=== PATIENT | male | born 1940 | race Caucasian/White ===

== ENCOUNTER 2022-03-13 11:09 | Inpatient (IN) | payer OTHER ==
[~2022-03-13] VITALS: Ht 167.6 cm; Wt 72.0 kg
[2022-03-13] MEDS ORDERED: CLOP75TA60 PO (11:21)
[2022-03-13 14:49] LABS: BASOPHILS % (AUTO) 0.8 % (0.0-2.0); HEMATOCRIT 36.5 % (41-53); LYMPHOCYTES # (AUTO) 1.6 K/uL (1.0-4.8); LYMPHOCYTES % (AUTO) 19.6 % (22.0-44.0); MEAN CORPUSCULAR HEMOGLOBIN 30.3 pg (26.0-34.0); MEAN CORPUSCULAR HGB CONC 32.9 G/dL (31.0-37.0); MEAN CORPUSCULAR VOLUME 92 fL (80-100); MONOCYTES # (AUTO) 0.7 K/uL (0.1-1.0); MONOCYTES % (AUTO) 8.4 % (2.0-9.0); NEUTROPHILS # (AUTO) 5.6 K/uL (1.8-7.7); NEUTROPHILS % (AUTO) 67.2 % (40.0-70.0); PLATELET COUNT (AUTO) 221 K/uL (150-450); RED BLOOD CELL COUNT(AUTO) 3.97 MIL/uL (4.50-5.90); RED CELL DISTRIBUTION WIDTH 12.9 % (11.5-14.5)
[2022-03-13 14:52] LABS: ANION GAP 8 mmol/L (8-16); CALCIUM, TOTAL 8.5 mg/dL (8.8-10.5); CARBON DIOXIDE 27 mmol/L (22-29); CHLORIDE 106 mmol/L (98-107); CREATININE 0.91 mg/dL (0.60-1.30); GLUCOSE,RANDOM 99 mg/dL (70-110); POTASSIUM 3.9 mmol/L (3.5-5.1); SODIUM SERUM 141 mmol/L (136-145); UREA NITROGEN, BLOOD 27 mg/dL (7-18)
[2022-03-13 14:53] LABS: GLOMERULAR FILTR. RATE CALC > 60 mL/min (>60)
[2022-03-13 14:54] LABS: PROTHROMBIN TIME 10.9 SEC (9.4-11.6)
[2022-03-13] MEDS ORDERED: AmLODIPine BESYLATE 2.5 MG TABLET PO SCH (15:00)
[2022-03-13] MEDS ORDERED: ACETAMINOPHEN 325 MG TABLET PO PRN (15:00)
[2022-03-13] MEDS ORDERED: ONDANSETRON HCL 4 MG/2 ML VIAL IVP PRN (15:00)
[2022-03-13] MEDS ORDERED: ASPIRIN 81 MG CHEWABLE TABLET PO SCH (15:00)
[2022-03-13 15:02] LABS: B-TYPE NATRIURETIC PEPTIDE 60 pg/mL (0-100)
[2022-03-13 15:06] LABS: ALANINE AMINOTRANSFERASE 21 U/L (12-78); ALBUMIN 3.3 g/dL (3.4-5.0); ALKALINE PHOSPHATASE 99 U/L (46-116); ASPARTATE AMINOTRANSFERASE 23 U/L (15-37); BILIRUBIN,TOTAL 0.4 mg/dL (0.1-1.0); TOTAL PROTEIN, SERUM 6.9 g/dL (6.4-8.2)
[2022-03-13 15:32] LABS: COVID AG,FIA SOURCE NASAL SWAB
[2022-03-13] MEDS: ATORVASTATIN CALCIUM 20 MG TABLET PO SCH (15:55)
[2022-03-13] MEDS ORDERED: HEPARIN SODIUM,PORCINE 5,000 UNITS/ML VIAL SQ SCH (16:00)
[2022-03-13] MEDS ORDERED: SODIUM CHLORIDE 0.9% 1,000 ML IV ONE (17:30)
[2022-03-13] MEDS: DOCUSATE SODIUM 100 MG CAPSULE PO SCH (21:00)
[2022-03-14] MEDS: DOCUSATE SODIUM 100 MG CAPSULE PO SCH ×2 (08:34→21:00)
[2022-03-14] MEDS: AmLODIPine BESYLATE 5 MG TABLET PO SCH (09:28)
[2022-03-14] MEDS: MULTIVITAMINS WITH MINERALS, THERAPEUTIC TABLET PO SCH (09:28)
[2022-03-14] MEDS: FAMOTIDINE 20 MG TABLET PO SCH (09:28)
[2022-03-14] MEDS: ATORVASTATIN CALCIUM 20 MG TABLET PO SCH (09:28)
[2022-03-14] MEDS ORDERED: MELO-108 PO (11:25)
[2022-03-14 20:00] VITALS: BP 144/76
[2022-03-15 04:21] VITALS: BP 142/83
[2022-03-15 07:39] VITALS: BP 137/90
[2022-03-15] MEDS: FAMOTIDINE 20 MG TABLET PO SCH (09:00)
[2022-03-15] MEDS: MULTIVITAMINS WITH MINERALS, THERAPEUTIC TABLET PO SCH (09:00)
[2022-03-15] MEDS: DOCUSATE SODIUM 100 MG CAPSULE PO SCH ×2 (09:00→21:00)
[2022-03-15] MEDS: AmLODIPine BESYLATE 5 MG TABLET PO SCH (09:00)
[2022-03-15] MEDS: ATORVASTATIN CALCIUM 20 MG TABLET PO SCH (09:00)
[2022-03-15] MEDS ORDERED: THROMBIN, BOVINE 20000 UNITS/VIAL POWDER TP ONE (09:17)
[2022-03-15] MEDS ORDERED: VANCOMYCIN HCL 1 GM/VIAL ONE (09:17)
[2022-03-15] MEDS ORDERED: LIDOCAINE 1%/EPI 1:200,000/PF 30 ML VIAL ONE (09:17)
[2022-03-15] MEDS ORDERED: BACITRACIN 28 GM OINTMENT TP ONE (09:17)
[2022-03-15] MEDS ORDERED: GELATIN SPONGE,ABSORBABLE 50 MM TP ONE (09:19)
[2022-03-15] MEDS ORDERED: SODIUM CHLORIDE 0.9% 1,000 ML ONE (09:50)
[2022-03-15] MEDS ORDERED: BUPIVACAINE 0.25%/EPI 1:200,000/PF 10 ML VIAL ONE (10:49)
[2022-03-15] MEDS ORDERED: LevETIRAcetam 1,000 MG in DEXTROSE 5%-WATER 100 ML IV ONE (11:00)
[2022-03-15] MEDS ORDERED: TRANEXAMIC ACID 1,000 MG/10 ML VIAL ONE (11:39)
[2022-03-15] MEDS ORDERED: SUGAMMADEX SODIUM 200 MG/2 ML VIAL IVP ONE (11:39)
[2022-03-15] MEDS ORDERED: ONDANSETRON HCL 4 MG/2 ML VIAL IVP ONE (12:00)
[2022-03-15] MEDS ORDERED: ROCURONIUM BROMIDE 10 MG/ML 5 ML VIAL IVP ONE (12:00)
[2022-03-15] MEDS ORDERED: PROPOFOL 1% 20 ML VIAL IVP ONE (12:00)
[2022-03-15] MEDS ORDERED: MIDAZOLAM HCL 2 MG/2 ML VIAL IVP ONE (12:00)
[2022-03-15] MEDS ORDERED: 0.9% SODIUM CHLORIDE 10 ML VIAL IVP ONE (12:00)
[2022-03-15] MEDS ORDERED: EPHEDrine SULFATE 50 MG/ML VIAL IM ONE (12:00)
[2022-03-15] MEDS ORDERED: FentaNYL CITRATE PF 100 MCG/2 ML VIAL IVP ONE (12:00)
[2022-03-15] MEDS ORDERED: LIDOCAINE/PF 2% 5 ML VIAL IM ONE (12:00)
[2022-03-15] MEDS ORDERED: MORPHINE SULFATE 4 MG/ML SYRINGE IVP PRN (12:30)
[2022-03-15] MEDS ORDERED: ONDANSETRON HCL 4 MG/2 ML VIAL IVP PRN (12:30)
[2022-03-15] MEDS ORDERED: MAG HYDROX/AL HYDROX/SIMETH 30 ML SUSP UDCUP PO PRN (12:30)
[2022-03-15] MEDS ORDERED: ACETAMINOPHEN 325 MG TABLET PO PRN (12:30)
[2022-03-15] MEDS ORDERED: OxyCODONE HCL/ACETAMINOPHEN 5-325 MG TABLET PO PRN (12:30)
[2022-03-15] MEDS ORDERED: FentaNYL CITRATE PF 100 MCG/2 ML VIAL IVP PRN (12:45)
[2022-03-15] MEDS ORDERED: HYDROmorphone HCL 2 MG/ML SYRINGE IVP PRN (12:45)
[2022-03-15] MEDS ORDERED: FentaNYL CITRATE PF 100 MCG/2 ML VIAL ONE (13:06)
[2022-03-15 16:30] VITALS: BP 122/68
[2022-03-15] MEDS ORDERED: SODIUM CHLORIDE 0.9% 250 ML IV ONE (16:37)
[2022-03-15 16:45] VITALS: BP 142/68
[2022-03-15 17:30] VITALS: BP 144/70
[2022-03-15 20:00] VITALS: BP 144/99
[2022-03-15] MEDS: POTASSIUM CHL 20 MEQ/D5-0.45NS 1,000 ML IV SCH (21:23)
[2022-03-15] MEDS: CeFAZolin 1 GM/DEXTROSE 50 ML IV SCH (21:24)
[2022-03-15] MEDS: OXYGEN THERAPY IH SCH (21:25)
[2022-03-16] VITALS: BP 153/72
[2022-03-16 04:00] VITALS: BP 153/80
[2022-03-16] MEDS: CeFAZolin 1 GM/DEXTROSE 50 ML IV SCH (04:23)
[2022-03-16 06:38] LABS: BASOPHILS % (AUTO) 0.4 % (0.0-2.0); EOSINOPHILS % (AUTO) 4.5 % (1.0-6.0); HEMATOCRIT 39.7 % (41-53); HEMOGLOBIN 13.3 g/dL (13.5-17.5); LYMPHOCYTES # (AUTO) 0.9 K/uL (1.0-4.8); LYMPHOCYTES % (AUTO) 10.7 % (22.0-44.0); MEAN CORPUSCULAR HEMOGLOBIN 30.7 pg (26.0-34.0); MEAN CORPUSCULAR HGB CONC 33.5 G/dL (31.0-37.0); MEAN CORPUSCULAR VOLUME 92 fL (80-100); MONOCYTES # (AUTO) 0.8 K/uL (0.1-1.0); MONOCYTES % (AUTO) 9.4 % (2.0-9.0); NEUTROPHILS # (AUTO) 6.1 K/uL (1.8-7.7); PLATELET COUNT (AUTO) 229 K/uL (150-450); RED BLOOD CELL COUNT(AUTO) 4.34 MIL/uL (4.50-5.90); RED CELL DISTRIBUTION WIDTH 12.8 % (11.5-14.5)
[2022-03-16 06:55] LABS: ANION GAP 6 mmol/L (8-16); CALCIUM, TOTAL 8.6 mg/dL (8.8-10.5); CARBON DIOXIDE 28 mmol/L (22-29); CHLORIDE 102 mmol/L (98-107); CREATININE 0.91 mg/dL (0.60-1.30); GLUCOSE,RANDOM 111 mg/dL (70-110); POTASSIUM 3.6 mmol/L (3.5-5.1); SODIUM SERUM 136 mmol/L (136-145); UREA NITROGEN, BLOOD 13 mg/dL (7-18)
[2022-03-16 07:07] LABS: GLOMERULAR FILTR. RATE CALC > 60 mL/min (>60)
[2022-03-16 08:00] VITALS: BP 154/76
[2022-03-16 08:21] LABS: ABG BASE EXCESS 1.1 mmol/L (-2.0-3.0); ABG CARBOXYHEMOGLOBIN 0.6 % (0.0-1.5); ABG HCO3 25.4 mmol/L (22.0-26.0); ABG METHEMOGLOBIN 0.3 % (0.0-1.5); ABG OXYGEN CONTENT 18.1 mL/dL (15.0-23.0); ABG OXYGEN SATURATION 97.9 % (95.0-98.0); ABG PCO2 41 mmHg (35-45); ABG PH 7.418 (7.35-7.450); ABG TOTAL HEMOGLOBIN 13.2 G/dL (12.0-18.0); PO2, ARTERIAL BG 101.4 mmHg (71.0-79.0); SITE, BLOOD GAS LFT RADIAL; SOURCE, BLOOD GAS ARTERIAL; TEMPERATURE, FAHRENHEIT, BG 98.4 FAHREN (96.0-98.6)
[2022-03-16 08:22] LABS: ABG A-A DIFF O2 50.5 mmHg (10-20.0); O2 DEVICE,BLOOD GAS CANNULA (ROOM AIR)
[2022-03-16] MEDS: AmLODIPine BESYLATE 5 MG TABLET PO SCH ×2 (09:00→10:00)
[2022-03-16] MEDS: ATORVASTATIN CALCIUM 20 MG TABLET PO SCH ×2 (09:00→10:00)
[2022-03-16] MEDS: MULTIVITAMINS WITH MINERALS, THERAPEUTIC TABLET PO SCH (09:00)
[2022-03-16] MEDS: DOCUSATE SODIUM 100 MG CAPSULE PO SCH ×2 (09:00→21:00)
[2022-03-16] MEDS: FAMOTIDINE 20 MG TABLET PO SCH (09:00)
[2022-03-16] MEDS: OXYGEN THERAPY IH SCH ×2 (09:09→20:00)
[2022-03-16] MEDS: POTASSIUM CHL 20 MEQ/D5-0.45NS 1,000 ML IV SCH (10:06)
[2022-03-16] MEDS ORDERED: SODIUM CHLORIDE 0.9% 250 ML IV ONE (10:15)
[2022-03-16 12:00] VITALS: BP 157/75
[2022-03-16] MEDS: LevETIRAcetam 500 MG in DEXTROSE 5%-WATER 100 ML IV SCH (12:19)
[2022-03-16] MEDS ORDERED: HydrALAZINE HCL 20 MG/ML VIAL IVP PRN (15:30)
[2022-03-16] MEDS ORDERED: AmLODIPine BESYLATE 5 MG TABLET PO ONE (15:30)
[2022-03-16 16:00] VITALS: BP 162/80
[2022-03-16 20:00] VITALS: BP 112/61
[2022-03-17] VITALS (7 sets, daily range): BP systolic 107–147; BP diastolic 46–79
[2022-03-17] MEDS: LevETIRAcetam 500 MG in DEXTROSE 5%-WATER 100 ML IV SCH ×2 (00:07→12:04)
[2022-03-17 05:58] LABS: BASOPHILS % (AUTO) 0.2 % (0.0-2.0); EOSINOPHILS % (AUTO) 6.8 % (1.0-6.0); HEMATOCRIT 40.1 % (41-53); HEMOGLOBIN 13.5 g/dL (13.5-17.5); LYMPHOCYTES # (AUTO) 1.2 K/uL (1.0-4.8); LYMPHOCYTES % (AUTO) 14.4 % (22.0-44.0); MEAN CORPUSCULAR HEMOGLOBIN 30.7 pg (26.0-34.0); MEAN CORPUSCULAR HGB CONC 33.7 G/dL (31.0-37.0); MEAN CORPUSCULAR VOLUME 91 fL (80-100); MONOCYTES # (AUTO) 0.7 K/uL (0.1-1.0); MONOCYTES % (AUTO) 9.1 % (2.0-9.0); NEUTROPHILS # (AUTO) 5.6 K/uL (1.8-7.7); NEUTROPHILS % (AUTO) 69.5 % (40.0-70.0); PLATELET COUNT (AUTO) 224 K/uL (150-450); RED CELL DISTRIBUTION WIDTH 12.9 % (11.5-14.5)
[2022-03-17 06:10] LABS: ANION GAP 6 mmol/L (8-16); CALCIUM, TOTAL 8.5 mg/dL (8.8-10.5); CARBON DIOXIDE 30 mmol/L (22-29); CHLORIDE 101 mmol/L (98-107); CREATININE 0.83 mg/dL (0.60-1.30); GLUCOSE,RANDOM 104 mg/dL (70-110); PHOSPHORUS 3.2 mg/dL (2.5-4.9); POTASSIUM 3.8 mmol/L (3.5-5.1); SODIUM SERUM 137 mmol/L (136-145); UREA NITROGEN, BLOOD 8 mg/dL (7-18)
[2022-03-17 06:43] LABS: GLOMERULAR FILTR. RATE CALC > 60 mL/min (>60)
[2022-03-17 07:11] LABS: PLATELET MORPHOLOGY COMMENT LARGE PLTS PRESENT
[2022-03-17] MEDS: OXYGEN THERAPY IH SCH ×2 (08:50→20:34)
[2022-03-17] MEDS: MULTIVITAMINS WITH MINERALS, THERAPEUTIC TABLET PO SCH (08:54)
[2022-03-17] MEDS: DOCUSATE SODIUM 100 MG CAPSULE PO SCH ×2 (08:54→20:34)
[2022-03-17] MEDS: FAMOTIDINE 20 MG TABLET PO SCH (08:54)
[2022-03-17] MEDS: AmLODIPine BESYLATE 10 MG TABLET PO SCH (08:54)
[2022-03-17] MEDS: ATORVASTATIN CALCIUM 20 MG TABLET PO SCH (09:06)
[2022-03-17] MEDS ORDERED: SODIUM CL IRRIG SOLN BOTTLE 250 ML IRRIG ONE (17:05)
[2022-03-18] VITALS (7 sets, daily range): BP systolic 117–127; BP diastolic 62–78
[2022-03-18] MEDS: LevETIRAcetam 500 MG in DEXTROSE 5%-WATER 100 ML IV SCH ×3 (00:15→23:55)
[2022-03-18] MEDS ORDERED: SODIUM CL IRRIG SOLN BOTTLE 250 ML IRRIG ONE ×2 (05:14→14:08)
[2022-03-18] MEDS: OXYGEN THERAPY IH SCH ×2 (08:00→20:21)
[2022-03-18] MEDS: DOCUSATE SODIUM 100 MG CAPSULE PO SCH ×2 (09:19→20:21)
[2022-03-18] MEDS: FAMOTIDINE 20 MG TABLET PO SCH (09:19)
[2022-03-18] MEDS: MULTIVITAMINS WITH MINERALS, THERAPEUTIC TABLET PO SCH (09:20)
[2022-03-18] MEDS: AmLODIPine BESYLATE 10 MG TABLET PO SCH (09:22)
[2022-03-19 03:33] VITALS: BP 130/77
[2022-03-19 06:20] LABS: BASOPHILS % (AUTO) 0.4 % (0.0-2.0); EOSINOPHILS % (AUTO) 9.4 % (1.0-6.0); HEMATOCRIT 37.3 % (41-53); HEMOGLOBIN 12.8 g/dL (13.5-17.5); LYMPHOCYTES # (AUTO) 1.8 K/uL (1.0-4.8); LYMPHOCYTES % (AUTO) 19.3 % (22.0-44.0); MEAN CORPUSCULAR HGB CONC 34.4 G/dL (31.0-37.0); MEAN CORPUSCULAR VOLUME 90 fL (80-100); MONOCYTES # (AUTO) 0.9 K/uL (0.1-1.0); MONOCYTES % (AUTO) 9.2 % (2.0-9.0); NEUTROPHILS # (AUTO) 5.8 K/uL (1.8-7.7); NEUTROPHILS % (AUTO) 61.7 % (40.0-70.0); PLATELET COUNT (AUTO) 228 K/uL (150-450); RED BLOOD CELL COUNT(AUTO) 4.15 MIL/uL (4.50-5.90); RED CELL DISTRIBUTION WIDTH 12.8 % (11.5-14.5)
[2022-03-19 07:55] VITALS: BP 110/66
[2022-03-19] MEDS: DOCUSATE SODIUM 100 MG CAPSULE PO SCH ×2 (08:18→20:01)
[2022-03-19] MEDS: MULTIVITAMINS WITH MINERALS, THERAPEUTIC TABLET PO SCH (08:18)
[2022-03-19] MEDS: FAMOTIDINE 20 MG TABLET PO SCH (08:18)
[2022-03-19] MEDS: OXYGEN THERAPY IH SCH (08:19)
[2022-03-19] MEDS: AmLODIPine BESYLATE 10 MG TABLET PO SCH (08:19)
[2022-03-19] MEDS: ATORVASTATIN CALCIUM 20 MG TABLET PO SCH (08:19)
[2022-03-19 10:47] VITALS: BP 113/58
[2022-03-19] MEDS: LevETIRAcetam 500 MG in DEXTROSE 5%-WATER 100 ML IV SCH ×2 (12:48→23:44)
[2022-03-19 15:46] VITALS: BP 122/60
[2022-03-19 19:40] VITALS: BP 147/55
[2022-03-19] MEDS ORDERED: SODIUM CHLORIDE 0.9% 250 ML IV ONE (22:52)
[2022-03-20] MEDS ORDERED: SODIUM CL IRRIG SOLN BOTTLE 250 ML IRRIG ONE (03:41)
[2022-03-20 04:40] VITALS: BP 129/74
[2022-03-20 08:21] VITALS: BP 122/73
[2022-03-20] MEDS: DOCUSATE SODIUM 100 MG CAPSULE PO SCH ×2 (09:06→20:03)
[2022-03-20] MEDS: FAMOTIDINE 20 MG TABLET PO SCH (09:06)
[2022-03-20] MEDS: MULTIVITAMINS WITH MINERALS, THERAPEUTIC TABLET PO SCH (09:06)
[2022-03-20] MEDS: AmLODIPine BESYLATE 10 MG TABLET PO SCH (09:06)
[2022-03-20] MEDS: ATORVASTATIN CALCIUM 20 MG TABLET PO SCH (09:06)
[2022-03-20] MEDS: OXYGEN THERAPY IH SCH ×2 (09:28→20:06)
[2022-03-20] MEDS: LevETIRAcetam 500 MG in DEXTROSE 5%-WATER 100 ML IV SCH ×2 (11:59→23:27)
[2022-03-20 16:07] VITALS: BP 131/69
[2022-03-20] MEDS ORDERED: SODIUM CHLORIDE 0.9% IRRIG BTL 1,000 ML IRRIG ONE (18:04)
[2022-03-20 20:20] VITALS: BP 125/73
[2022-03-21] MEDS ORDERED: SODIUM CL IRRIG SOLN BOTTLE 250 ML IRRIG ONE (04:13)
[2022-03-21 05:15] VITALS: BP 123/69
[2022-03-21 08:00] VITALS: BP 133/70
[2022-03-21] MEDS: OXYGEN THERAPY IH SCH (08:52)
[2022-03-21] MEDS: FAMOTIDINE 20 MG TABLET PO SCH (08:52)
[2022-03-21] MEDS: MULTIVITAMINS WITH MINERALS, THERAPEUTIC TABLET PO SCH (08:52)
[2022-03-21] MEDS: ATORVASTATIN CALCIUM 20 MG TABLET PO SCH (08:52)
[2022-03-21] MEDS: AmLODIPine BESYLATE 10 MG TABLET PO SCH (08:52)
[2022-03-21] MEDS: DOCUSATE SODIUM 100 MG CAPSULE PO SCH (08:52)
[2022-03-21] MEDS: LevETIRAcetam 500 MG in DEXTROSE 5%-WATER 100 ML IV SCH (12:49)
[2022-03-21] MEDS ORDERED: ATOR20TA86 PO (15:59)
[2022-03-21 16:00] VITALS: BP 113/63
[2022-03-21] MEDS ORDERED: LEVE500T20 PO (16:00)
[2022-03-21] MEDS ORDERED: AMLO-258 PO (16:00)
[2022-03-21] MEDS ORDERED: MULT-1239 PO (16:00)
[2022-03-21] MEDS ORDERED: FAMO20 PO (16:00)
[2022-03-21] MEDS ORDERED: ACET-2247 PO (16:01)
== END 2022-03-21 17:58 | DRG 25 ==
LOC: EMS 11:36 → AHU 17:28 → 5S 03-14 19:45 → ICU 03-15 13:55 → 5S 03-17 13:25 → 6N 03-19 17:47
PROVIDERS: ADMIT Internal Medicine; ATTEND Internal Medicine
PROC: 009430Z Drainage of Intracranial Subdural Space with Drainage Device, Percutaneous Approach (ICD-10-PCS; principal; 2022-03-15 11:30)
DX: I62.01 Nontraumatic acute subdural hemorrhage (principal); G93.5 Compression of brain; I87.8 Other specified disorders of veins; I10 Essential (primary) hypertension; R29.6 Repeated falls; R31.9 Hematuria, unspecified; I73.9 Peripheral vascular disease, unspecified; Z90.49 Acquired absence of other specified parts of digestive tract; Z59.7 Insufficient social insurance and welfare support; Z79.02 Long term (current) use of antithrombotics/antiplatelets; Z79.899 Other long term (current) drug therapy; Z86.718 Personal history of other venous thrombosis and embolism
CPT/HCPCS: 36600; 70450; 71045; 72125; 72131; 80048; 80053; 82805; 83735; 83880; 84100; 84484; 85025; 85610; 85730; 86850; 86900; 86901; 92507; 92610; 93005; 93306; 93970; 97110; 97112; 97116; 97163; 97167; 97530; 97535; 99291; G0378; J0690; J0712; J1644; J2250; J2405; J2704; J3010; J3370; J3480; J3490; J7030; J7050; J7060; P9035; Q9967; 36415-L1; 36415-TC; Z7610